=== PATIENT | male | born 1985 | race Caucasian/White ===

== ENCOUNTER 2018-12-07 13:35 | Emergency (ER) | payer BC ==
[2018-12-07 14:59] LABS: ABSOLUTE NEUTROPHIL COUNT 9.21; HEMATOCRIT 38.1 % (42.0-52.0); HEMOGLOBIN 12.4 gm/dl (14.0-18.0); MEAN CELL VOLUME 87.2 fl (81-97); MEAN CORPUSCULAR HGB CONC 32.5 g/dl (32-36); MEAN PLATELET VOLUME 9.7 fl (7.4-10.4); PLATELET COUNT 235 K/uL (130-400); RED BLOOD COUNT 4.37 M/uL (4.40-5.70); RED CELL DISTRIBUTION WIDTH 13.2 % (11.5-14.5); WHITE BLOOD COUNT W/O DIFF 10.9 K/uL (4.2-12.2)
[2018-12-07 15:04] LABS: MEAN CORPUSCULAR HEMOGLOBIN 28.3 pg (27-33)
[2018-12-07 15:37] LABS: ERYTHROCYTE SEDIMENTATION RATE 71 mm/hr (0-15)
[2018-12-07 16:07] LABS: BLOOD UREA NITROGEN 13 mg/dL (6-20); CREATININE 0.9 mg/dL (0.7-1.2); EST GLOMERULAR FILTRATION RATE > 60 mL/min
[2018-12-07 16:08] LABS: TOTAL PROTEIN 7.5 g/dL (6.6-8.7)
[2018-12-07 16:10] LABS: GLUCOSE,RANDOM 83 mg/dL (74-109)
[2018-12-07 16:12] LABS: ALB/GLOB RATIO 1.3 (1.1-1.8); ALBUMIN 4.2 g/dL (4.0-5.0); ALT/SGPT 7 U/L (<41); AST/SGOT 14 U/L (10.0-50.0)
[2018-12-07 16:13] LABS: ALKALINE PHOSPHATASE 51 U/L (40-129)
--- NOTE | 2018-12-07 16:23 | Emergency Department Record ---
History of Present Illness - General Chief complaint: Pain Stated complaint: PAIN IN STERNUM/FEVER Time Seen by Provider: 12/07/18 14:17 Source: Patient Mode of Arrival: Ambulatory Limitations: No limitations - History of Present Illness Initial comments: pt c/o pain in his sternum. he states he woke up with so much pain in his sternum that he couldnt lift his arms. he denies any new activity. he had a temperature 2 days ago. he denies other symptoms. he denies iv drug use MD Complaint: Other Onset/Timin -: Days(s) History of Same: No -: Yes Fever Consistency: Intermittent, Now resolved Improves with: Nothing Worsens with: Nothing Associated Symptoms: Fever - Related Data Previous Rx's Medication Instructions Recorded Amoxicillin/Potassium Clav 1 tab PO BID #20 tab 12/07/18 [Augmentin 875-125 Tablet] Azithromycin [Zithromax] 250 mg PO DAILY #4 tab 12/07/18 Allergies Allergy/AdvReac Type Severity Reaction Status Date / Time vancomycin [VANCOMYCIN] Allergy Unknown Unverified 08/02/13 10:11 Travel Screening - Travel/Exposure Within Last 30 Days Have you traveled within the last 30 days?: No Review of Systems Reviewed: No additional complaints except as noted below Constitutional: Reports: As per HPI, Fever. Denies: Chills, Malaise, Night sweats, Weakness, Weight change Eyes: Reports: As per HPI. Denies: Eye discharge, Eye pain, Photophobia, Vision change ENT: Reports: As per HPI. Denies: Congestion, Dental pain, Ear pain, Epistaxis, Hearing loss, Throat pain Respiratory: Reports: As per HPI. Denies: Cough, Dyspnea, Hemoptysis, Stridor, Wheezes Cardiovascular: Reports: As per HPI, Chest pain. Denies: Arrhythmia, Dyspnea on exertion, Edema, Murmurs, Orthopnea, Palpitations, Paroxysmal nocturnal dyspnea, Rheumatic Fever, Syncope Endocrine: Reports: As per HPI. Denies: Fatigue, Heat or cold intolerance, Polydipsia, Polyuria Gastrointestinal: Reports: As per HPI. Denies: Abdominal pain, Constipation, Diarrhea, Hematemesis, Hematochezia, Melena, Nausea, Vomiting Genitourinary: Reports: As per HPI. Denies: Dysuria, Frequency, Hematuria, Incontinence, Retention, Testicular pain, Testicular mass, Urgency Musculoskeletal: Reports: As per HPI. Denies: Arthralgia, Back pain, Gout, Joint swelling, Myalgia, Neck pain Skin: Reports: As per HPI. Denies: Bruising, Change in color, Change in hair/nails, Lesions, Pruritus, Rash Neurological: Reports: As per HPI. Denies: Abnormal gait, Confusion, Headache, Numbness, Paresthesias, Seizure, Tingling, Tremors, Vertigo, Weakness Psychiatric: Reports: As per HPI. Denies: Anxiety, Auditory hallucinations, Depression, Homicidal thoughts, Suicidal thoughts, Visual hallucinations Hematological/Lymphatic: Reports: As per HPI. Denies: Anemia, Blood Clots, Easy bleeding, Easy bruising, Swollen glands Past Medical History - SOCIAL HISTORY Smoking Status: Former smoker Alcohol Use: None Drug Use: None - RESPIRATORY Hx Respiratory Disorders: No - CARDIOVASCULAR Hx Cardio Disorders: No - NEURO Hx Neuro Disorders: No - GI Hx GI Disorders: No - Hx Genitourinary Disorders: No - ENDOCRINE Hx Endocrine Disorders: No - MUSCULOSKELETAL Hx Musculoskeletal Disorders: No - PSYCH Hx Psych Problems: No - HEMATOLOGY/ONCOLOGY Hx Hematology/Oncology Disorders: No Family Medical History Any Significant Family History?: No Physical Exam - General General Appearance: Alert, Oriented x3, Cooperative, No acute distress - Head Head exam: Normal inspection - Eye Eye exam: Normal appearance, PERRL, EOMI Pupils: Normal accommodation - ENT ENT exam: Normal exam, Mucous membranes moist, Normal external ear exam, Normal orophraynx Ear exam: Normal external inspection. negative: External canal tenderness Nasal Exam: Normal inspection. negative: Discharge, Sinus tenderness Mouth exam: Normal external inspection, Tongue normal Teeth exam: Normal inspection. negative: Dental caries Throat exam: Normal inspection. negative: Tonsillar erythema, Tonsillar exudate - Neck Neck exam: Normal inspection, Full ROM. negative: Tenderness - Respiratory Respiratory exam: Normal lung sounds bilaterally, Chest wall tenderness. negative: Respiratory distress - Cardiovascular Cardiovascular Exam: Normal rhythm, Normal heart sounds, Tachycardia - GI/Abdominal GI/Abdominal exam: Soft, Normal bowel sounds. negative: Tenderness - Rectal Rectal exam: Deferred - exam: Deferred - Extremities Extremities exam: Normal inspection, Full ROM, Normal capillary refill. negative: Tenderness - Back Back exam: Reports: Normal inspection, Full ROM. Denies: Muscle spasm, Rash noted, Tenderness - Neurological Neurological exam: Alert, CN II-XII intact, Normal gait, Oriented X3 - Psychiatric Psychiatric exam: Normal affect, Normal mood - Skin Skin exam: Dry, Intact, Normal color, Warm Course Vital Signs 12/07/18 14:00 Temperature 98.2 F Pulse Rate 101 H Respiratory 18 Rate Blood Pressure 108/67 Pulse Ox 99 - Reevaluation(s) Reevaluation #1: 12/07/18 17:54 ct show rul infiltate w cavitation. pneumonia vs malignancy or other etiology. close f/u is arranged w enmanuel for wed at 3:20 Medical Decision Making - Lab Data Result diagrams: 12/07/18 14:55 12/07/18 13:45 Lab Results 12/07/18 12/07/18 12/07/18 Range/Units 13:45 14:55 14:55 WBC 10.9 Cancelled (4.2-12.2) K/uL Corrected WBC Cancelled RBC 4.37 L Cancelled (4.40-5.70) M/uL Hgb 12.4 L Cancelled (14.0-18.0) gm/dl Hct 38.1 L Cancelled (42.0-52.0) % MCV 87.2 Cancelled (81-97) fl MCH 28.3 Cancelled (27-33) pg MCHC 32.5 Cancelled (32-36) g/dl RDW 13.2 Cancelled (11.5-14.5) % Plt Count 235 Cancelled (130-400) K/uL MPV 9.7 Cancelled (7.4-10.4) fl Gran % Cancelled Neutrophils % 85.0 H Cancelled (47-80) % Band Neutrophils % 0.0 Cancelled (0-5) % Lymphocytes % Cancelled Monocytes % Cancelled Eosinophils % Not Reportable Cancelled Basophils % Not Reportable Cancelled Absolute Neutrophils 9.21 Cancelled Lymphocytes 8.0 L Cancelled (16-45) % Monocytes 6.0 Cancelled (0-9) % Basophils 0.0 Cancelled (0-6) % Metamyelocytes Cancelled Myelocytes Cancelled Promyelocytes Cancelled Nucleated RBCs Cancelled Differential Comment Cancelled Hypersegmented Polys Cancelled Plasma Cells Cancelled Other Cell Type Cancelled Toxic Granulation Cancelled Dohle Bodies Cancelled Ian Rods Cancelled Platelet Estimate Cancelled RBC Morphology Cancelled Polychromasia Cancelled Hypochromasia Cancelled Poikilocytosis Cancelled Basophilic Stippling Cancelled Anisocytosis Cancelled Microcytosis Cancelled Macrocytosis Cancelled Spherocytes Cancelled Sickle Cells Cancelled Target Cells Cancelled Tear Drop Cells Cancelled Ovalocytes Cancelled Stomatocytes Cancelled Helmet Cells Cancelled [place] Bodies Cancelled [place] Rings Cancelled Tamara Cells Cancelled Acanthocytes (Spur) Cancelled Rouleaux Cancelled Schistocytes Cancelled Morphology Comment Cancelled ESR 71 H (0-15) mm/hr Eosinophil Count 1.0 Cancelled (0-6) % Sodium 139 (136-145) mmol/L Potassium 3.6 (3.4-4.5) mmol/L Chloride 99 (98-107) mmol/L Carbon Dioxide 23.0 (22-29) mmol/L Anion Gap 17.0 H (7-16) BUN 13 (6-20) mg/dL Creatinine 0.9 (0.7-1.2) mg/dL Estimated GFR > 60 mL/min Random Glucose 83 (74-109) mg/dL Calcium 9.4 (8.6-10.0) mg/dL Total Bilirubin 0.50 (0.2-1.0) mg/dL Total Protein 7.5 (6.6-8.7) g/dL Disposition Disposition: Discharge Clinical Impression: Pneumonia Qualifiers: Pneumonia type: due to unspecified organism Laterality: right Lung location: upper lobe of lung Qualified Code(s): J18.1 - Lobar pneumonia, unspecified organism Disposition: Home, Self-Care Condition: (1) Good Instructions: Pneumonia (ED) Additional Instructions: follow up with enmanuel at 3:00 on friday at main building entrance C. return sooner if worse Prescriptions: Amoxicillin/Potassium Clav [Augmentin 875-125 Tablet] 1 tab PO BID #20 tab Azithromycin [Zithromax] 250 mg PO DAILY #4 tab Referrals: Enmanuel Gordillo, N.P. [NURSE PRACTITIONER] - [facility] [Provider Group] Forms: Patient Portal Access Quality - Quality Measures Quality Measures: N/A - Blood Pressure Screening Does Patient Have Any of the Following: No Blood Pressure Classification: Normal BP Reading Systolic Measurement: 108 Diastolic Measurement: 67 Screening for High Blood Pressure: < Normal BP, F/U Not Required > [G8783]
[2018-12-07] MEDS ORDERED: CEFTRIAXONE SODIUM 1 GM in 0.9 % SODIUM CHLORIDE 100ML 100 ML IVPB ONE (17:10)
[2018-12-07] MEDS ORDERED: AZITHROMYCIN 500 MG TABLET PO ONE (17:12)
--- NOTE | 2018-12-09 18:15 | RADIOLOGY REPORT ---
EXAM: CHEST 2 VIEWS HISTORY: PAIN IN STERNUM, FEVER. TECHNIQUE: Two views of the chest. COMPARISON: None. FINDINGS: The heart and mediastinum appear normal. The lungs are clear. Skeletal structures show no acute or suspicious finding. IMPRESSION: NO SPECIFIC ACUTE CHEST PATHOLOGY EVIDENT. JOB NUMBER: [id number] MTDD
--- NOTE | 2018-12-09 18:22 | CT ANGIOGRAM REPORT ---
EXAM: CT ANGIOGRAM CHEST CTA w contrast HISTORY: RIGHT-SIDED CHEST PAIN AND FEVER. TECHNIQUE: Standard CT angiography of the chest was performed with postprocessing following the bolus administration of 70 mL of Omnipaque-350. Additional coronal and sagittal maximum intensity projection reformatted images were performed on an independent workstation under concurrent supervision. COMPARISON: Chest x-ray from the same date. FINDINGS: There is a focal area of consolidation within the right apex abutting the superior pleural surface. There are a few traversing air bronchograms. There is minor cavitation centrally. This area is nonspecific and may represent acute pneumonia. Malignancy could have a similar appearance and careful follow-up is recommended. There is a small associated with pleural effusion. There is a 3 mm noncalcified nodule within the right lower lobe on image #88 of series 3. There is a 4 mm noncalcified nodule within the left lower lobe on #86 of series 3. A few additional minor areas of atelectasis or scarring are present within both lungs. The lungs are otherwise clear. There is no left effusion. The pulmonary arterial tree is normal. There is no pulmonary embolus. There is no aortic aneurysm or dissection. The heart is normal in size. There is no pericardial effusion. There is a mildly enlarged right hilar lymph node measuring 1.1 x 1.6 cm. Other scattered nonenlarged mediastinal and hilar lymph nodes are present. There are no acute osseous abnormalities. Visualized portions of the upper abdomen appear normal. IMPRESSION: 1. FOCAL AREA OF MASS-LIKE CONSOLIDATION WITHIN THE RIGHT APEX ABUTTING THE SUPERIOR PLEURAL SURFACE. THERE ARE A FEW TRAVERSING AIR BRONCHOGRAMS AND MINOR CENTRAL CAVITATION. DIFFERENTIAL CONSIDERATIONS INCLUDE ACUTE PNEUMONIA VERSUS DEVELOPING MALIGNANCY. SHORT-TERM FOLLOW-UP IS RECOMMENDED TO CONFIRM CLEARING. 2. MILDLY ENLARGED RIGHT HILAR LYMPH NODE. 3. NO EVIDENCE FOR PULMONARY EMBOLUS. JOB NUMBER: [id number] [facility]
== END 2018-12-07 18:20 | disposition home or self-care (01) ==
LOC: ER 13:35
DX: J18.1 Lobar pneumonia, unspecified organism (principal); Z87.891 Personal history of nicotine dependence
CPT/HCPCS: 71046; 71275; 80053; 84484; 85027; 85651; 93005; 93010; 96365; 99284